=== PATIENT | male | born 1960 | race Caucasian/White ===

== ENCOUNTER 2016-08-24 16:30 | Emergency (ER) | payer BC | END 2016-08-24 17:14 | disposition home or self-care (01) | LOC: ER 16:30 | PROC: 0XQWXZZ Repair Left Little Finger, External Approach (ICD-10-PCS; principal; 2016-08-24) | DX: S61.317A Laceration without foreign body of left little finger with damage to nail, initial encounter (principal); W23.0XXA Caught, crushed, jammed, or pinched between moving objects, initial encounter | CPT/HCPCS: 73140-LT; 96372; 99283; A9270-GY; J0690 ==